=== PATIENT | female | born 1970 | race African-American/Black ===

== ENCOUNTER 2023-07-14 13:29 | Emergency (ER) | payer SELFPAY ==
[~2023-07-14] VITALS: Ht 170.2 cm; Wt 99.0 kg
[2023-07-14 13:34] VITALS: TEMP 98.6; O2SAT 100
[2023-07-14] MEDS: KETOROLAC 15MG/ML VIAL IM ONE (14:27)
[2023-07-14 14:31] VITALS: BP 152/86; PULSE 70; RESP 20
[2023-07-14] MEDS ORDERED: LIDO700A15 TP (14:37)
[2023-07-14] MEDS ORDERED: NAPR-1176 MT (14:37)
== END 2023-07-14 14:58 | disposition home or self-care (01) ==
LOC: ER 13:45
DX: M54.2 Cervicalgia (principal); I10 Essential (primary) hypertension; I25.2 Old myocardial infarction; V49.49XA Driver injured in collision with other motor vehicles in traffic accident, initial encounter; Y93.89 Activity, other specified; Y92.89 Other specified places as the place of occurrence of the external cause; Y99.8 Other external cause status
CPT/HCPCS: 99283; 96372; J1885